=== PATIENT | female | born 1940 | race Caucasian/White ===

== ENCOUNTER 2018-08-26 18:09 | Emergency (ER) | payer MEDICARE, OTHER ==
[2018-08-26] MEDS ORDERED: Lidocaine 1% (PF) 30 ML VIAL ONE (19:08)
[2018-08-26 19:17] LABS: #Basophils 0.1 thou/uL (0.0-0.2); #Eosinphils 0.1 thou/uL (0.0-0.7); #Lymphocytes 1.3 thou/uL (1.20-3.40); #Monocytes 0.4 thou/uL (0.11-0.59); #Neutrophils 6.4 thou/uL (1.40-6.50); %Basophils 1.2 % (0.0-1.0); %Eosinophils 1.1 % (0.0-10.0); %Lymphocytes 15.8 % (21.0-51.0); %Monocytes 5.2 % (0.0-10.0); %Neutrophils 76.8 % (42.0-75.0); Hemoglobin 13.5 g/dL (12.0-16.0); Mean Corpuscular HGB CONC 31.7 g/dL (32.0-36.0); Mean Corpuscular Hemoglobin 28.8 pg (27.0-31.0); Mean Corpuscular Volume 90.9 fL (78.0-98.0); Mean Platelet Volume 7.1 fL (7.4-10.4); Platelet Count 260 thou/uL (130-400); RBC Distribution Width 12.2 % (11.5-14.5); Red Blood Cell (RBC) Count 4.67 mill/uL (4.20-5.40); White Blood Cell (WBC) Count 8.4 thou/uL (4.8-10.8)
[2018-08-26 19:43] LABS: ALT (SGPT) 13 U/L (8-55); AST (SGOT) 19 U/L (5-34); Albumin 4.1 g/dL (3.4-4.8); Alkaline Phosphatase 93 U/L (40-150); Anion Gap 10 mmol/L (10-20); BUN (Urea Nitrogen) 25 mg/dL (9.8-20.1); Bilirubin, Total 0.3 mg/dL (0.2-1.2); Calc. Creatinine Clearance 0 mL/min (70-130); Calcium 9.5 mg/dL (7.8-10.44); Carbon Dioxide 27 mmol/L (23-31); Chloride 107 mmol/L (98-107); Estimated GFR-MDRD 68; Globulin 2.5 g/dL (2.4-3.5); Glucose 100 mg/dL (83-110); Potassium 4.1 mmol/L (3.5-5.1); Protein, Total 6.6 g/dL (6.0-8.3); Sodium 140 mmol/L (136-145)
--- NOTE | 2018-08-26 20:02 | CT ---
CT CERVICAL SPINE NONCONTRAST: 08/26/18 HISTORY: Fall. Neck injury. FINDINGS: Vertebral body heights and alignment are maintained. Multilevel disc space narrowing and osteophytosi s. Cervicothoracic junction is intact. No acute fracture or dislocation are evident. Calcified granul omata are apparent at the lung apices. IMPRESSION: Degenerative changes cervical spine. No acute osseous abnormalities are demonstrated. POS: [facility]
--- NOTE | 2018-08-26 20:03 | CT ---
CT HEAD NONCONTRAST: 08/26/18 HISTORY: Fall. Head injury. FINDINGS: There is no evidence of acute intracranial hemorrhage or infarct. Diffuse cortical atrophy and mild c hronic ischemic small vessel disease are apparent. There is no mass effect or shift of midline struct ures. IMPRESSION: Diffuse cortical atrophy. No acute intracranial abnormalities are demonstrated. POS: [facility]
--- NOTE | 2018-08-26 20:04 | CT ---
CT FACE NONCONTRAST: 08/26/18 HISTORY: Fall. Facial injury. FINDINGS: The globes, mandible, and zygomatic arches are intact. The visualized paranasal sinuses remain well a erated. No displaced fractures are apparent. IMPRESSION: No significant abnormalities are demonstrated. POS: [facility]
--- NOTE | 2018-08-26 20:09 | RAD ---
LEFT HAND THREE VIEWS: 08/26/18 HISTORY: Fall. Left hand injury. FINDINGS: Prominent degenerative changes throughout the hand, most pronounced at the first carpometacarpal join t. Osseous structures are demineralized. No acute fracture or dislocation. IMPRESSION: Prominent osteoarthritic changes. No acute osseous abnormalities are demonstrated. Osteoporosis. POS: [facility]
--- NOTE | 2018-08-26 20:10 | RAD ---
LEFT FOREARM TWO VIEWS: 08/26/18 HISTORY: Left arm injury. FINDINGS: Radius and ulna are intact. Osseous structures are demineralized. No acute fracture or dislocation. IMPRESSION: Osteoporosis. No acute osseous abnormalities are demonstrated. POS: [facility]
[2018-08-26] MEDS ORDERED: Adacel (T-DAP) 0.5 ML VIAL ONE (20:14)
== END 2018-08-27 00:24 ==
LOC: ERS 18:09
DX: S01.511A Laceration without foreign body of lip, initial encounter (principal); S60.222A Contusion of left hand, initial encounter; E78.5 Hyperlipidemia, unspecified; I10 Essential (primary) hypertension; M81.0 Age-related osteoporosis without current pathological fracture; F41.9 Anxiety disorder, unspecified; G30.9 Alzheimer's disease, unspecified; F02.80 Dementia in other diseases classified elsewhere, unspecified severity, without behavioral disturbance, psychotic disturbance, mood disturbance, and anxiety; Z79.899 Other long term (current) drug therapy; Z79.82 Long term (current) use of aspirin; W19.XXXA Unspecified fall, initial encounter
CPT/HCPCS: 12013; 36415; 70450; 70486; 72125; 80053; 85025; 90471; 90715; J2001